=== PATIENT | female | born 1995 | race Caucasian/White ===

== ENCOUNTER 2020-09-05 13:58 | Outpatient (CLI) | payer OTHER ==
[2020-09-05 14:49] LABS: APPEARANCE,URINE CLOUDY; BILIRUBIN,URINE NEGATIVE (NEGATIVE); COLOR,URINE YELLOW; GLUCOSE, URINE NEGATIVE (NEGATIVE); KETONES,URINE NEGATIVE (NEGATIVE); LEUKOCYTE ESTERASE,URINE SMALL (NEGATIVE); NITRITE,URINE NEGATIVE (NEGATIVE); PROTEIN,URINE NEGATIVE (NEGATIVE); URINE SPECIFIC GRAVITY 1.026; UROBILINOGEN,URINE NEGATIVE mg/dL (<2.0)
[2020-09-05 15:12] LABS: URINE AMPHETAMINES SCREEN NEGATIVE; URINE BARBITURATES SCREEN NEGATIVE; URINE BENZODIAZEPINES SCREEN NEGATIVE; URINE COCAINE SCREEN NEGATIVE; URINE MARIJUANA (THC) SCREEN NEGATIVE; URINE METHADONE SCREEN NEGATIVE; URINE PHENCYCLIDINE SCREEN NEGATIVE
== END 2020-09-05 15:45 | disposition home or self-care (01) ==
LOC: LC 13:58
PROVIDERS: ATTEND Student in an Organized Health Care Education/Training Program
DX: Z34.93 Encounter for supervision of normal pregnancy, unspecified, third trimester (principal)
CPT/HCPCS: 59025; 80307; 81005

== ENCOUNTER 2020-09-05 18:54 | Inpatient (IN) | payer OTHER ==
--- NOTE | 2020-09-05 18:57 | Non Stress Test Report ---
Non Stress Test Datetime Report Generated by CPN: 09/05/2020 18:56 DEMOGRAPHIC EGA NST: 40.1 INDICATION Indication for Study (NST) Other: LC - IUP @ 40.1 MONITORING Monitor Explained: Monitor Explained; Test Explained; Patient Verbalized Understanding Time on Monitor: 09/05/2020 14:30 Time off Monitor: 09/05/2020 14:50 NST Duration: 20 NST INTERVENTIONS NST Interventions: PO Hydration Physician Notified NST: K. Fong, CNM BABY A: [id number] BABY A Movement : Present Contraction Frequency : 7-8 FHR Baseline : 130 Accelerations : 15X15 Decelerations : None Variability : Moderate 6-25bpm NST Review: Meets Criteria for Reactive NST NST Review and Verified By : Love Xiong RN NST Results: Reactive NST REPORT Report Trigger: Send Report
--- NOTE | 2020-09-05 21:07 | Non Stress Test Report ---
Non Stress Test Datetime Report Generated by CPN: 09/05/2020 21:07 EGA NST: 40.1 Indication for Study (NST) Other: LC Monitor Explained: Monitor Explained; Test Explained; Patient Verbalized Understanding Time on Monitor: 09/05/2020 19:07 Time off Monitor: 09/05/2020 19:49 NST Duration: 42 NST Interventions: PO Hydration; Other NST Interventions Other: popsicle Physician Notified NST: Sandy Movement : Present Contraction Frequency : 1-8 FHR Baseline : 135 Accelerations : 15X15 Decelerations : None Variability : Moderate 6-25bpm NST Review: Meets Criteria for Reactive NST NST Review and Verified By : Stewart Fox RN NST Results: Reactive Report Trigger: Send Report
[2020-09-05] MEDS ORDERED: RINGERS SOLUTION,LACTATED 1,000 ML IV PRN (21:50)
[2020-09-05] MEDS ORDERED: RINGERS SOLUTION,LACTATED 1,000 ML IV ONE (21:50)
[2020-09-05] MEDS ORDERED: OXYTOCIN 10 UNIT/ML VIAL ONE (21:58)
[2020-09-05] MEDS ORDERED: MISOPROSTOL 0.2 MG TABLET ONE (21:58)
[2020-09-05] MEDS ORDERED: OXYTOCIN/0.9 % SODIUM CHLORIDE 30 UNIT/500 ML RTUINJ ONE (21:59)
[2020-09-05] MEDS ORDERED: LIDOCAINE 1% INJ-PF (10 MG/ML) 30 ML SDV ONE (21:59)
[2020-09-05] MEDS ORDERED: FENTANYL/BUPIVACAINE/NS/PF 300 MCG/150 ML RTUINJ EPI ONE (22:19)
[2020-09-05] MEDS ORDERED: EPHEDRINE SULFATE INJ 50 MG/1 ML AMPULE ONE (22:19)
[2020-09-05] MEDS ORDERED: ROPIVACAINE HCL 0.2% INJ/PF (2 MG/ML) 20 ML SDV ONE (22:20)
[2020-09-05 22:30] LABS: ABSOLUTE LYMPHOCYTES (AUTO) 0.9 10^3/uL (0.5-4.7); ABSOLUTE MONOCYTES (AUTO) 0.5 10^3/uL (0.1-1.4); ABSOLUTE NEUT (AUTO) 8.4 10^3/uL (1.7-8.2); BASOPHILS % (AUTO) 0.2 % (0-2); EOSINOPHILS % (AUTO) 0.1 % (0-6); HEMATOCRIT 34.4 % (36.0-47.0); HEMOGLOBIN 12.1 g/dL (12.0-15.5); LYMPHOCYTES % (AUTO) 9.6 % (13-45); MEAN CORPUSCULAR HEMOGLOBIN 31.7 pg (27.0-33.4); MEAN CORPUSCULAR HGB CONC 35.2 g/dL (32.0-36.0); MEAN CORPUSCULAR VOLUME 90 fl (80-97); MONOCYTES % (AUTO) 4.9 % (3-13); PLATELET COUNT 142 10^3/uL (150-450); RED BLOOD COUNT 3.82 10^6/uL (3.72-5.28); RED CELL DISTRIBUTION WIDTH 13.9 % (11.5-14.0); SEGMENTED NEUTROPHILS % (AUTO) 85.2 % (42-78); TOTAL CELLS COUNTED % (AUTO) 100 %; WHITE BLOOD COUNT 9.9 10^3/uL (4.0-10.5)
--- NOTE | 2020-09-05 23:03 | Admission Physical ---
Datetime Report Generated by CPN: 09/05/2020 23:03 CURRENT ADMISSION Chief Complaint: Uterine Contractions; Suspected Ruptured Membranes Indication for Induction: Not Applicable Admit Impression : Term, Intrauterine ; Active Labor; Intact Membranes Admit Plan: Admit to Unit; Initiate Labor Protocol ALLERGIES Medication Allergies: No Medication Allergies: No Known Allergies (09/05/2020) Latex: No Latex Allergies OBSTETRICAL HISTORY EDC: 09/04/2020 00:00 : 2 Para: 1 Term: 1 : 0 SAB: 0 IAB: 0 Livin Gestational Diabetes: No Rh Sensitization: No Incompetent Cervix: No MARCIO: No Infertility: No ART Treatment: No Uterine Anomaly: No IUGR: No Hx Previous C/S: No Macrosomia: No Hx Loss/Stillborn: No PIH: No Hx : No Placenta Previa/Abruption: No Depression/PP Depression: No PTL/PROM: No Post Hemorrhage: No Obstetrical History Comments: G1: 2019 girl SEE RECORDS Alcohol: No Marijuana : No Cocaine: No Other Illicit Drugs: No Cigarettes: Never Smoker. [id number] MEDICAL HISTORY Diabetes: No Blood Transfusion: No Pulmonary Disease (Asthma, TB): No Breast Disease: No Hypertension: No Clothing Consultant Surgery: No Heart Disease: No Hosp/Surgery: No Autoimmune Disorder: No Anesthetic Complications: No Kidney Disease: No Abnormal Pap Smear: No Neuro/Epilepsy: No Psychiatric Disorders: No Other Medical Diseases: No Hepatitis/Liver Disease: No Significant Family History: No Varicosities/Phlebitis: No Trauma/Violence : No Thyroid Dysfunction: No INFECTIOUS HISTORY Gonorrhea: No Genital Herpes: No Chlamydia: Yes Tuberculosis: No Syphilis: No Hepatitis: No HIV/AIDS Exposure: No Rash or Viral Illness: No HPV: No PHYSICAL EXAM General: Normal HEENT: Normal Neurologic: Normal Thyroid: Deferred Heart: Normal Lungs: Normal Breast: Deferred Back: Normal Abdomen: Normal Genitourinary Exam: Normal Extremities: Normal DTRs: Normal Pelvic Type: Adequate Vital Signs: Reviewed VAGINAL EXAM Dilatation: 6 Effacement: 80 Station: -3 Contraction Comments: q 3 MEMBRANES Membranes: Ruptured Amniotic Fluid Color: Clear FETUS A EGA: 40.1 Monitoring: External US FHR- Baseline: 145 Variability: Moderate 6-25bpm Accelerations: 15X15 Decelerations: None FHR Category: Category I Presentation: Vertex Admit Comment: 24yo at 40+1ega presents with contractions then while ambulating SROM and cvx now 6cm. GBS negative. Pelvis proven to 8#1oz. H/o + chlam 08/08 and repeat on 08/29 was reportedly negative. Repeat GC/CT today. H/o pph. positive RPR - negative TPA. Repeat RPR today. Failed 1 hr GTT, passed 3 hr GTT. Admit and anticipate . PLANS FOR LABOR AND DELIVERY Pain Management: Epidural Feeding Preference: Breast Benefit of Breast Feed Discussed: Yes Circumcision: No INFORMED CONSENT Informed Consent Obtained: Vaginal Delivery; Risks, Benefits and Alternatives Discussed Signature: with User ID: [email or web address]
[2020-09-06] MEDS ORDERED: MISOPROSTOL 0.2 MG TABLET ONE (02:05)
[2020-09-06] MEDS ORDERED: FENTANYL CITRATE INJ/PF 100 MCG/2 ML AMPUL ONE (02:07)
[2020-09-06] MEDS ORDERED: ZOLPIDEM TARTRATE 5 MG TABLET PO PRN (02:17)
[2020-09-06] MEDS ORDERED: ACETAMINOPHEN WITH CODEINE #3 TABLET PO PRN ×2 (02:17)
[2020-09-06] MEDS ORDERED: PROMETHAZINE HCL 25 MG TABLET PO PRN (02:17)
[2020-09-06] MEDS ORDERED: DIBUCAINE 1% OINTMENT 28 GM TP PRN (02:17)
[2020-09-06] MEDS ORDERED: BENZOCAINE/MENTHOL AEROSOL SPRAY 56 ML TOP PRN (02:17)
[2020-09-06] MEDS ORDERED: MEASLES,MUMPS&RUBELLA VACC/PF 0.5 ML VIAL SUBCUT PRN (02:17)
[2020-09-06] MEDS ORDERED: MAGNESIUM HYDROXIDE SUSP 30 ML UDCUP PO PRN (02:17)
[2020-09-06] MEDS ORDERED: PROMETHAZINE HCL 25 MG SUPP.RECT PR PRN (02:17)
[2020-09-06] MEDS ORDERED: PSEUDOEPHEDRINE HCL 30 MG TABLET PO PRN (02:17)
[2020-09-06] MEDS ORDERED: GLYCERIN/WITCH HAZEL LEAF 1 EACH MED..WIPE TP PRN (02:17)
[2020-09-06] MEDS ORDERED: ACETAMINOPHEN 325 MG TABLET PO PRN (02:17)
[2020-09-06] MEDS ORDERED: NA PHOS,M-B/NA PHOS,DI-BA (ADULT) 133 ML ENEMA PR PRN (02:17)
[2020-09-06] MEDS ORDERED: OXYTOCIN/0.9 % SODIUM CHLORIDE 30 UNIT/500 ML RTUINJ IV PRN (02:17)
[2020-09-06] MEDS ORDERED: DIPH/PERTUSS(ACELL)/TETANUS VAC/PF 0.5 ML SYR (>=10YO) IM PRN (02:17)
[2020-09-06] MEDS ORDERED: PROMETHAZINE HCL INJ 25 MG/1 ML VIAL IV PRN (02:17)
[2020-09-06] MEDS ORDERED: MISOPROSTOL 0.2 MG TABLET PR PRN (02:17)
[2020-09-06] MEDS ORDERED: DIPHENHYDRAMINE HCL 25 MG CAPSULE PO PRN (02:17)
--- NOTE | 2020-09-06 03:38 | Birth Certificate Data ---
Cert Data Datetime Report Generated by CPN: 09/06/2020 03:38 CERTIFICATE DATA Delivery Provider: Alka Delgado MD (09/05/2020 14:08:Emmie Fox RN) 47a. Care: Yes (09/05/2020 14:08:Fabiola Fox RN) 48b. Now Livin (09/05/2020 14:08:Nahomy Jaeger RN) RISK FACTORS IN THIS 49a. Diabetes: No (09/05/2020 14:08:Fabiola Fox RN) 49b. Hypertension: No (09/05/2020 14:08:Fabiola Fox RN) 49c. Previous Births: 0 (09/05/2020 14:08:Nahomy Jaeger RN) 49d. Stillborns: No (09/05/2020 14:08:Fabiola Fox RN) 49d. IUGR: No (09/05/2020 14:08:Fabiola Fox RN) 49e. Infertility Treatment: No (09/05/2020 14:08:Fabiola Fox RN) Mother's Height 50b. Height Inches: 61 (09/05/2020 19:12:QS system process) Mother's Weight 51a. Pre- Weight (lbs): 126 (09/05/2020 14:08:Fabiola Fox RN) 51b. Weight at Delivery (lbs): 165 (09/05/2020 19:12:QS system process) Infections Present/Treated 53a. Gonorrhea: No (09/05/2020 14:08:Fabiola Fox RN) Results this Hospital Visit : Negative (09/05/2020 14:08:Nahomy Jaeger RN) 53b. Syphilis: No (09/05/2020 14:08:Fabiola Fox RN) 53c. Chlamydia: Yes (09/05/2020 14:08:Fabiola Fox RN) Results this Hospital Visit: Negative (09/05/2020 14:08:Nahomy Jaeger RN) 53d. Hepatitis B: No (09/05/2020 14:08:Fabiola Fox RN) Results this Hospital Visit: Negative (09/05/2020 14:08:Nahomy Jaeger RN) 53h. Mother Tested for HBsAG: Yes (09/05/2020 14:08:Fabiola Fox RN) 53j. Test Result: Negative (09/05/2020 14:08:Nahomy Jaeger RN) Cigarette Smoking Cigarette Smoking: Never Smoker. [id number] (09/05/2020 14:08:Fabiola Fox RN) 55a. 3 Months Before Preg - Ci (09/05/2020 14:08:Fabiola Fox RN) 55b. 1st Trimester of Preg- Ci (09/05/2020 14:08:Fabiola Fox RN) 55c. 2nd Trimester of Preg- Ci (09/05/2020 14:08:Fabiola Fox RN) 55d. 3rd Trimester of Preg- Ci (09/05/2020 14:08:Fabiola Fox RN) Onset of Labor 56a. PROM >12 Hrs: 4.03 (09/05/2020 14:08:QS system process) 56b. Precipitous Labor <3 Hrs: 4 (09/05/2020 14:08:QS system process) 56c. Prolonged Labor > 20 Hrs: 4 (09/05/2020 14:08:QS system process) 57a. Induction of Labor: N/A (09/05/2020 14:08:Emmie Fox RN) 57c. Non-Vertex Presentation A: Vertex (09/05/2020 14:08:Emmie Fox RN) 57d. Steroids - Lung Mat: None (09/05/2020 14:08:Emmie Fox RN) 57d. Steroids - Lung Mat: Not Applicable (09/05/2020 14:08:Emmie Fox RN) 57g. Moderate/Heavy Meconium: Clear (09/05/2020 21:57:Fabiola Fox RN) 57h. Intolerance of Labor: N/A (09/05/2020 14:08:Fabiola Fox RN) : N/A (09/05/2020 14:08:Fabiola Fox RN) 57i. Epidural/Spinal Anesthesia: Epidural (09/05/2020 14:08:Emmie Fox RN) Method of Delivery 58a. Forceps - Unsuccessful A: N/A (09/05/2020 14:08:Emmie Fox RN) 58b. Vacuum - Unsuccessful A: N/A (09/05/2020 14:08:Emmie Fox RN) 58c. Presentation at 58c. Presentation at - A : Vertex (09/05/2020 14:08:Emmie Fox RN) 58c. Presentation at - A : N/A (09/05/2020 14:08:Emmie Fox RN) 58c. Presentation at - A : Cephalic (09/05/2020 23:14:Fabiola Fox RN) Final Route and Method of Del 58d. Baby A Route/Delivery: Vaginal (09/05/2020 14:08:Emmie Fox RN) 58e. Trial of Labor Attempted: No (09/05/2020 14:08:Emmie Fox RN) 58e. Trial of Labor Attempted A: N/A (09/05/2020 14:08:Emmie Fox RN) 58e. Trial of Labor Attempted B: N/A (09/05/2020 14:08:Emmie Fox RN) Maternal Morbidity 59b. 3rd or 4th Degree Lacs: None (09/05/2020 14:08:Emmie Fox RN) Birthweight Baby A: 3888 (09/05/2020 14:08:Fabiola Fox RN) 60a. Pounds : 8 (09/05/2020 14:08:QS system process) 60b. Ounces: 9 (09/05/2020 14:08:QS system process) 61. GA at Delivery Baby A: 40.2 (09/05/2020 14:08:Emmie Fox RN) : Full Term- 39- 40.6 Weeks (09/05/2020 14:08:QS system process) 62a. 5 Minute Baby A: 9 (09/05/2020 14:08:QS system process)
--- NOTE | 2020-09-06 03:38 | Delivery Summary ---
Del Sum A-C Datetime Report Generated by CPN: 09/06/2020 03:38 DELIVERY PERSONNEL DELIVERY PERSONNEL: [id number] Delivery Doctor:: Alka Delgado MD BRIDGE TENDER:: Anca Woodward CRNA Labor and Delivery Nurse:: Fabiola Fox RNhelp desk supervisor Nurse:: Emmie Fox RN Artificial Limb Fitter/TELECOMMUNICATIONS SALES REPRESENTATIVE: Rosenda Enriquez, BUTTON TUFTING MACHINE OPERATOR MATERNAL INFORMATION Delivery Anesthesia: Epidural Medications After Delivery: Pitocin 30 Units in 500ml NS/D5W Estimated Blood Loss (ml): 225 Delivery QBL: 225 Maternal Complications: None Provider Comments: VMI delivered in ESTRELLITA presentation. No nuchal cord. shoulders and body delivered without difficulty. Cord doubly clamped and cut. to maternal abdomen for NRP. Placenta delivered without difficulty spontaneously intact. FF at U. Cytotec 1000mcg given per rectum and improved uterine atony. Mother and baby stable upon provider leaving the room. LABOR SUMMARY EDC: 09/04/2020 00:00 No. Babies in Womb: 1 Attempted: No Labor Anesthesia: Epidural LABOR INFORMATION Reason for Induction: Not Applicable Onset of Labor: 09/05/2020 21:44 Complete Dilatation: 09/06/2020 01:53 Oxytocin: N/A Group B Beta Strep: Negative Name of Antibiotic Given: n/a Steroids Given: None Reason Steroids Not Administered: Not Applicable MEMBRANES Membranes Rupture Method: Spontaneous Rupture of Membranes: 09/05/2020 21:57 Length of Rupture (hr): 4.03 Amniotic Fluid Color: Clear Amniotic Fluid Amount: Small Amniotic Fluid Odor: None STAGES OF LABOR Stage 1 hr: 4 Stage 1 min: 9 Stage 2 hr: 0 Stage 2 min: 6 Stage 3 hr: 0 Stage 3 min: 3 Total Time in Labor hr: 4 Total Time in Labor min: 18 VAGINAL DELIVERY Episiotomy: None Laceration #1: None Laceration Extension #1: N/A Laceration Repair: Not Applicable Sponge Count Correct: Yes Sharps Count Correct: Yes CSECTION DELIVERY Primary Indication: N/A Secondary Indication: N/A CSection Incidence: N/A Labor: N/A Elective: N/A BABY A INFORMATION Infant Delivery Date/Time: 09/06/2020 01:59 Method of Delivery: Vaginal Nurse Controlled Delivery: No Born in Route : No : N/A Forceps: N/A Vacuum Extraction: N/A Shoulder Dystocia : No PRESENTATION/POSITION BABY A Presentation: Cephalic Cephalic Presentation: Vertex Vertex Position: Left Occipital Anterior Breech Presentation: N/A PLACENTA INFORMATION BABY A Placenta Delivery Time : 09/06/2020 02:02 Placenta Method of Delivery: Spontaneous Placenta Status: Delivered SCORES BABY A Heart Rate 1 min: >100 bpm Resp Effort 1 min: Good Cry Reflex Irritability 1 min: Cough or Sneeze or Pulls Away Muscle Tone 1 min: Active Motion Color 1 min: Blue/Pale Resuscitation Effort 1 min: Tactile Stimulation SCORE 1 MIN: 8 Heart Rate 5 min: >100 bpm Resp Effort 5 min: Good Cry Reflex Irritability 5 min: Cough or Sneeze or Pulls Away Muscle Tone 5 min: Active Motion Color 5 min: Body Lat[place], Extremities Blue Resuscitation Effort 5 min: Tactile Stimulation SCORE 5 MIN: 9 INFANT INFORMATION BABY A Gestational Age at Delivery: 40.2 Gestational Status: Full Term- 39- 40.6 Weeks Outcome : Liveborn Condition : Stable Sex: Male IDENTIFICATION BABY A Verification Date/Time: 09/06/2020 02:22 ID Band Number: [id number] Mother's Name Verified: Yes Infant RN Verifying Infant: Juany FoxDominique MTZ Additional Verifying Personnel: Kiersten Rodriguez WEIGHT/LENGTH BABY A Birthweight (gm): 3888 Weight (lb): 8 Infant Weight (oz): 9 Length (in): 20.00 Length (cm): 50.80 CORD INFORMATION BABY A No. Cord Vessels: 3 Nuchal Cord : N/A Cord Blood Taken: Yes-For Eval (Mom's Blood Type - or O+) Infant Suction: Mouth; Nose ASSESSMENT BABY A Complications: None Physical Findings at Delivery: Within Normal Limits Physical Findings- Other: see initial assessment by nursery Respirations: Appears Normal Skin to Skin: Yes Electrical Mechanic/ALS Called : No Care By: A. Ruddy, RN Transferred To: Remains with Mother BABY B INFORMATION : N/A SIGNATURES Signature: with User ID: [email or web address]
[2020-09-06 04:02] LABS: CHLAM PCR DETECTED (NOT DETECT)
[2020-09-06] MEDS ORDERED: IBUPROFEN 800 MG TABLET ONE (04:06)
[2020-09-06] MEDS ORDERED: AZITHROMYCIN 250 MG TABLET PO ONE (05:57)
[2020-09-06] MEDS: IBUPROFEN 800 MG TABLET PO SCH ×3 (08:02→22:10)
[2020-09-06] MEDS: DOCUSATE SODIUM 100 MG CAPSULE PO SCH ×2 (09:23→18:25)
[2020-09-06] MEDS: FAMOTIDINE 20 MG TABLET PO SCH ×2 (09:23→22:10)
[2020-09-06] MEDS: FERROUS SULFATE 325 MG TABLET PO SCH ×2 (09:23→18:25)
[2020-09-06] MEDS: PRENATAL VITAMIN W DHA CAPSULE PO SCH (09:23)
[2020-09-06] MEDS: SENNOSIDES/DOCUSATE 8.6-50 MG 1 EACH TABLET PO SCH (09:23)
--- NOTE | 2020-09-06 13:11 | PDOC PROGRESS REPORT ---
Subjective-OB Progress Note for:: 09/06/20 Subjective: Pt doing well, up to bathroom and was able to have bowel movement. Reports light bleeding and reg diet, thinks she would be able to pee if we take the catheter out. Physical Exam (OB) Vital Signs: Temp Pulse Resp BP Pulse Ox 98.2 F 85 18 141/71 H 100 09/06/20 08:19 09/06/20 08:19 09/06/20 08:19 09/06/20 08:19 09/06/20 08:19 Intake & Output 09/05/20 09/06/20 09/07/20 06:59 06:59 06:59 Intake Total 1000 Balance 1000 Weight 74.7 kg - PIH/Pre-Eclampsia Clonus: Negative Headache: Absent Epigastric Pain: No Visual Changes: No - Maternal Morbidity 59. Maternal Morbidity (serious complications experinced by the mother associated with labor and delivery: None of the above - Lochia Lochia Amount: Scant < 10 ml Lochia Color: Rubra/Red - Abdomen Description: Soft Fundal Description: Firm, Midline Fundal Height: u/u - u/2 Objective-Diagnostic Laboratory: 09/05/20 22:11 09/05/20 09/05/20 22:11 22:11 WBC 9.9 RBC 3.82 Hgb 12.1 Hct 34.4 L MCV 90 MCH 31.7 MCHC 35.2 RDW 13.9 Plt Count 142 L Seg Neutrophils % 85.2 H Blood Type O POSITIVE Antibody Screen NEGATIVE Assessment and Plan(PN) - Assessment and Plan (1) Vaginal delivery Is this a current diagnosis for this admission?: Yes (2) Active labor at term Is this a current diagnosis for this admission?: Yes (3) Spontaneous rupture of membranes Is this a current diagnosis for this admission?: Yes - Time Spent with Patient Time with patient: Less than 15 minutes Medications reviewed and adjusted accordingly: Yes - Disposition Anticipated Discharge Disposition: Home, Self Care Anticipated Discharge Timeframe: within 24 hours
[2020-09-07] MEDS: IBUPROFEN 800 MG TABLET PO SCH ×3 (05:14→21:54)
[2020-09-07 07:08] LABS: HEMATOCRIT 29.7 % (36.0-47.0); HEMOGLOBIN 10.3 g/dL (12.0-15.5); MEAN CORPUSCULAR HGB CONC 34.7 g/dL (32.0-36.0); MEAN CORPUSCULAR VOLUME 92 fl (80-97); PLATELET COUNT 116 10^3/uL (150-450); RED BLOOD COUNT 3.22 10^6/uL (3.72-5.28); RED CELL DISTRIBUTION WIDTH 14.3 % (11.5-14.0); WHITE BLOOD COUNT 8.6 10^3/uL (4.0-10.5)
[2020-09-07] MEDS ORDERED: INFLUENZA QUAD (6MOS+) 2020-21 VAC 0.5 ML SYR IM ONE (08:00)
[2020-09-07] MEDS: DOCUSATE SODIUM 100 MG CAPSULE PO SCH ×2 (09:51→18:40)
[2020-09-07] MEDS: PRENATAL VITAMIN W DHA CAPSULE PO SCH (09:51)
[2020-09-07] MEDS: SENNOSIDES/DOCUSATE 8.6-50 MG 1 EACH TABLET PO SCH (09:51)
[2020-09-07] MEDS: FERROUS SULFATE 325 MG TABLET PO SCH ×2 (09:51→18:40)
[2020-09-07] MEDS: FAMOTIDINE 20 MG TABLET PO SCH ×2 (09:51→21:54)
--- NOTE | 2020-09-07 12:26 | PDOC PROGRESS REPORT ---
Subjective-OB Progress Note for:: 09/07/20 Subjective: Pt doing well, no concerns. She reports light bleeding, reg diet and voiding w/o difficulty. Physical Exam (OB) Vital Signs: Temp Pulse Resp BP Pulse Ox 98.1 F 64 16 115/62 98 09/07/20 08:48 09/07/20 07:15 09/07/20 07:15 09/07/20 07:15 09/07/20 07:15 Intake & Output 09/06/20 09/07/20 09/08/20 06:59 06:59 06:59 Intake Total 2200 Output Total 1450 Balance 750 Weight 74.7 kg - Maternal Morbidity 59. Maternal Morbidity (serious complications experinced by the mother associated with labor and delivery: None of the above - Lochia Lochia Amount: Scant < 10 ml Lochia Color: Rubra/Red - Abdomen Description: Soft Hernia Present: No Fundal Description: Firm Fundal Height: u/u - u/2 Objective-Diagnostic Laboratory: 09/07/20 06:56 09/07/20 06:56 WBC 8.6 RBC 3.22 L Hgb 10.3 L Hct 29.7 L MCV 92 MCH 32.0 MCHC 34.7 RDW 14.3 H Plt Count 116 L Assessment and Plan(PN) - Assessment and Plan (1) Vaginal delivery Is this a current diagnosis for this admission?: Yes (2) Active labor at term Is this a current diagnosis for this admission?: Yes (3) Spontaneous rupture of membranes Is this a current diagnosis for this admission?: Yes - Time Spent with Patient Time with patient: Less than 15 minutes Medications reviewed and adjusted accordingly: Yes - Disposition Anticipated Discharge Disposition: Home, Self Care Anticipated Discharge Timeframe: within 24 hours
[2020-09-08] MEDS: IBUPROFEN 800 MG TABLET PO SCH (06:01)
[2020-09-08 08:06] VITALS: BP 127/57
--- NOTE | 2020-09-08 08:37 | PDOC PROGRESS REPORT ---
Subjective-OB Progress Note for:: 09/08/20 Subjective: Doing well, eating bkf and holding baby, no c/o, ready to go home Physical Exam (OB) Vital Signs: Temp Pulse Resp BP Pulse Ox 97.8 F 73 17 127/57 H 98 09/08/20 08:06 09/08/20 08:06 09/08/20 08:06 09/08/20 08:06 09/08/20 08:06 Intake & Output 09/07/20 09/08/20 09/09/20 06:59 06:59 06:59 Intake Total 2200 Output Total 1450 Balance 750 - PIH/Pre-Eclampsia Clonus: Negative Headache: Absent Epigastric Pain: No Visual Changes: No - Maternal Morbidity 59. Maternal Morbidity (serious complications experinced by the mother associated with labor and delivery: None of the above - Lochia Lochia Amount: Scant < 10 ml Lochia Color: Rubra/Red - Abdomen Description: Soft Hernia Present: No Fundal Description: Firm, Midline Fundal Height: u/3 - u/4 Objective-Diagnostic Laboratory: 09/07/20 06:56 Assessment and Plan(PN) - Assessment and Plan (1) Vaginal delivery Is this a current diagnosis for this admission?: Yes (2) Spontaneous rupture of membranes Is this a current diagnosis for this admission?: Yes (3) Active labor at term Is this a current diagnosis for this admission?: Yes - Time Spent with Patient Time with patient: Less than 15 minutes Medications reviewed and adjusted accordingly: Yes - Disposition Anticipated Discharge Disposition: Home, Self Care Anticipated Discharge Timeframe: within 24 hours
--- NOTE | 2020-09-08 08:41 | PDOC DISCHARGE SUMMARY ---
Impression - Admit/DC Date/PCP Admission Date/Primary Care Provider: 09/05/20 21:55 CASIE JUAREZ MD Discharge Date: 09/08/20 - Discharge Diagnosis (1) Vaginal delivery Is this a current diagnosis for this admission?: Yes (2) Spontaneous rupture of membranes Is this a current diagnosis for this admission?: Yes (3) Active labor at term Is this a current diagnosis for this admission?: Yes - Additional Information Resuscitation Status: Full Code Discharge Diet: As Tolerated, Regular Discharge Activity: Activity As Tolerated, Pelvic Rest Referrals: CASIE JUAREZ MD [Primary Care Provider] - (rtc 4 weeks) Home Medications: Prenat 115/Iron Fum/Folic/Dss [ 19 Tablet] 1 each PO DAILY 09/05/20 HPI Gestational Age: 40.2 Reason(s) for Admission: Onset of Labor Procedures: NST, Ultrasound Intrapartum Procedure(s): Spontaneous Vaginal Delivery Hospital Course Hospital Course: routine 59. Maternal Morbidity (serious complications experinced by the mother associated with labor and delivery: None of the above Results Laboratory Results: WBC 8.6 10^3/uL (4.0-10.5) 09/07/20 06:56 RBC 3.22 10^6/uL (3.72-5.28) L 09/07/20 06:56 Hgb 10.3 g/dL (12.0-15.5) L 09/07/20 06:56 Hct 29.7 % (36.0-47.0) L 09/07/20 06:56 MCV 92 fl (80-97) 09/07/20 06:56 MCH 32.0 pg (27.0-33.4) 09/07/20 06:56 MCHC 34.7 g/dL (32.0-36.0) 09/07/20 06:56 RDW 14.3 % (11.5-14.0) H 09/07/20 06:56 Plt Count 116 10^3/uL (150-450) L 09/07/20 06:56 Lymph % (Auto) 9.6 % (13-45) L 09/05/20 22:11 [place] % (Auto) 4.9 % (3-13) 09/05/20 22:11 Eos % (Auto) 0.1 % (0-6) 09/05/20 22:11 Baso % (Auto) 0.2 % (0-2) 09/05/20 22:11 Absolute Neuts (auto) 8.4 10^3/uL (1.7-8.2) H 09/05/20 22:11 Absolute Lymphs (auto) 0.9 10^3/uL (0.5-4.7) 09/05/20 22:11 Absolute Monos (auto) 0.5 10^3/uL (0.1-1.4) 09/05/20 22:11 Absolute Eos (auto) 0.0 10^3/uL (0.0-0.6) 09/05/20 22:11 Absolute Basos (auto) 0.0 10^3/uL (0.0-0.2) 09/05/20 22:11 Seg Neutrophils % 85.2 % (42-78) H 09/05/20 22:11 Chlamydia DNA (PCR) DETECTED (NOT DETECT) H 09/05/20 14:10 N.gonorrhoeae DNA (PCR) NOT DETECTED (NOT DETECT) 09/05/20 14:10 Blood Type O POSITIVE 09/05/20 22:11 Antibody Screen NEGATIVE 09/05/20 22:11 Plan Health Concerns: routine pp issues Plan of Treatment: discharge home, rev S&S to report, feels safe at home and has help Goals: no complications Time Spent: Less than 30 Minutes
[2020-09-08] MEDS: FAMOTIDINE 20 MG TABLET PO SCH (09:12)
[2020-09-08] MEDS: PRENATAL VITAMIN W DHA CAPSULE PO SCH (09:12)
[2020-09-08] MEDS: DOCUSATE SODIUM 100 MG CAPSULE PO SCH (09:12)
[2020-09-08] MEDS: SENNOSIDES/DOCUSATE 8.6-50 MG 1 EACH TABLET PO SCH (09:12)
[2020-09-08] MEDS: FERROUS SULFATE 325 MG TABLET PO SCH (09:12)
== END 2020-09-08 11:00 | disposition home or self-care (01) | DRG 807 ==
LOC: LC 18:54 → LR 21:55 → 2S 09-06 04:50
PROVIDERS: ADMIT Student in an Organized Health Care Education/Training Program; ATTEND Student in an Organized Health Care Education/Training Program
PROC: 10E0XZZ Delivery of Products of Conception, External Approach (ICD-10-PCS; principal; 2020-09-05)
PROC: 3E0234Z Introduction of Serum, Toxoid and Vaccine into Muscle, Percutaneous Approach (ICD-10-PCS; 2020-09-08)
DX: O62.2 Other uterine inertia (principal); Z37.0 Single live birth; Z3A.40 40 weeks gestation of pregnancy; Z23 Encounter for immunization
CPT/HCPCS: 1967; 36415; 85025; 85027; 86592; 86850; 86900; 86901; 87491; 87591; 90471; 90686; 94760; G0008; J2590; J2795; J3010; J3490